=== PATIENT | female | born 1965 | race Two or more races ===

== ENCOUNTER 2016-07-29 13:48 | Emergency (ER) | payer OTHER ==
[2016-07-29] MEDS ORDERED: PROPARACAINE 0.5% 15 ML OPHT DROP ONE (14:01)
[2016-07-29] MEDS ORDERED: PROPARACAINE 0.5% 15 ML OPHT DROP EACHEYE ONE (14:15)
[2016-07-29 14:22] VITALS: BP 133/86; PULSE 81; RESP 16; TEMP 98.4; O2SAT 96
--- NOTE | 2016-07-29 14:47 | UCPHY ---
H & P Time Seen by Provider: 07/29/16 14:37 Patient Type: New HPI/ROS: Shortly prior to arrival this patient had methylene chloride/into her left eye more than right eye. She complains of pain and redness. She immediately flushed the eye at work and came here for further evaluation. She reports mild to moderate discomfort associated with this without significant visual change. She denies any other complaints. ROS: No skin burning or other complaints. 5 point ROS is otherwise negative. Past Medical/Surgical History: Otherwise healthy Smoking Status: Never smoked Physical Exam: Physical Exam Vital signs are normal. General: No acute distress HEENT: No skin erythema or other evidence of trauma. Eyes: Pupils equal and react to light. Extraocular motions are intact. She has mild conjunctival injection left eye more than right. Muscle and exam after her eye irrigation appreciate no evidence of significant keratitis. Only mild conjunctival injection. No foreign bodies. Lids and lashes normal. Vision is 20/20 right eye, 20/20 OS and 20/20 both eyes Lungs: No respiratory distress. Cardiac: Brisk capillary refill is intact throughout. Skin: No rash or pallor. Neuro: Alert and oriented with no sensorimotor deficits. Constitutional: Initial Vital Signs Temperature (C) 36.9 C 07/29/16 13:50 Heart Rate 81 07/29/16 13:50 Respiratory Rate 16 07/29/16 13:50 Blood Pressure 133/86 H 07/29/16 13:50 O2 Sat (%) 96 07/29/16 13:50 O2 Delivery Mode Room Air Allergies/Adverse Reactions: No Known Allergies Allergy (Unverified 07/29/16 14:14) Home Medications: Medication Instructions Recorded Erythromycin 0.5% 1 dayan EACHEYE TID #1 opht.oint 07/29/16 Hydrocodone/APAP 5/325 [[place] 1 - 2 tab PO Q4PRN PRN #12 tab 07/29/16 5/325 (*)] Ibuprofen [Motrin (*)] 600 mg PO Q6 PRN #30 tab 07/29/16 Medical Decision Making ED Course/Re-evaluation: Patient initially had elevated pH in the affected eye per triage nurse. Proparacaine anesthesia was administered and patient is treated with 3 L of saline irrigation with normalization of the pH on recheck. Discussion: Mild chemical conjunctivitis. No evidence of significant ocular injury. Patient does warrant follow up with Ophthalmology - Data Points Medications Given: Discontinued Medications Proparacaine HCl (Alcaine 0.5%) 1 drops EACHEYE ONCE ONE Stop: 07/29/16 14:16 Last Admin: 07/29/16 14:17 Dose: 4 drop Departure - Departure Disposition: Home, Routine, Self-Care Clinical Impression: Chemical conjunctivitis of both eyes Condition: Good Additional Instructions: Diagnosis: Chemical conjunctivitis Plan: Erythromycin eye ointment 3 times a day for the next 5-[address] 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 Discuss ophthalmology follow up with your supervisor blood at work since this is a work comp injury. Ibuprofen and Tylenol or Vicodin if needed for pain control. No driving, alcohol or come Vicodin. Symptoms should gradually improve over the next 3-5 days. Referrals: NONE *PRIMARY CARE P,. [Primary Care Provider] - As per Instructions Mulu Stovall MD [Medical Doctor] - As per Instructions Stand Alone Forms: Work Excuse Prescriptions: Erythromycin 0.5% 1 dayan EACHEYE TID #1 opht.oint Hydrocodone/APAP 5/325 [[place] 5/325 (*)] 1 - 2 tab PO Q4PRN PRN #12 tab PRN Reason: Pain Ibuprofen [Motrin (*)] 600 mg PO Q6 PRN #30 tab PRN Reason: Pain - PQRS PQRS Measurement: NA
== END 2016-07-29 15:31 | disposition home or self-care (01) ==
LOC: CED 13:48
DX: H10.213 Acute toxic conjunctivitis, bilateral (principal); T53.4X Toxic effects of dichloromethane
CPT/HCPCS: 99203-PO; G0463-PO